=== PATIENT | female | born 1990 | race Caucasian/White ===

== ENCOUNTER → 2017-02-23 | Outpatient (CLI) | payer OTHER ==
[2017-02-23 08:42] LABS: Cholesterol 216 mg/dL (<200); HDL Cholesterol 56 mg/dL (40-60); Triglycerides 180 mg/dL (<150)
== END | disposition home or self-care (01) ==
LOC: LABWHC1 08:04
PROVIDERS: ATTEND Nurse Practitioner Women's Health
DX: R53.83 Other fatigue (principal)
CPT/HCPCS: 36415; 80061

== ENCOUNTER → 2018-09-08 | Outpatient (CLI) | payer OTHER ==
--- NOTE | 2018-09-08 10:35 | XR ---
EXAMINATION TYPE: XR chest 2V DATE OF EXAM: 09/08/2018 COMPARISON: 04/27/2010 INDICATION: Cough, short of breath TECHNIQUE: Frontal and lateral views of the chest are obtained. FINDINGS: The heart size is normal. The pulmonary vasculature is normal. The lungs are clear. IMPRESSION: 1. No acute pulmonary process.
== END | disposition home or self-care (01) ==
LOC: RADXRMAIN 10:08
PROVIDERS: ATTEND Family Medicine
DX: R05 Cough (principal)
CPT/HCPCS: 71046

== ENCOUNTER → 2018-11-09 | Outpatient (CLI) | payer OTHER ==
[2018-11-09 17:51] LABS: Basophils % (A) 0 %; Eosinophils # (A) 0.1 k/uL (0-0.7); Eosinophils % (A) 2 %; HCT 40.7 % (34.0-46.0); HGB 13.3 gm/dL (11.4-16.0); Lymphocytes # (A) 3.3 k/uL (1.0-4.8); Lymphocytes % (A) 45 %; MCH 31.1 pg (25.0-35.0); MCHC 32.6 g/dL (31.0-37.0); MCV 95.4 fL (80.0-100.0); Mean Platelet Volume 6.2; Monocytes # (A) 0.3 k/uL (0-1.0); Monocytes % (A) 4 %; Neutrophils # (A) 3.4 k/uL (1.3-7.7); Neutrophils % (A) 46 %; Platelet Count 327 k/uL (150-450); RBC 4.27 m/uL (3.80-5.40); RDW 12.8 % (11.5-15.5); WBC 7.4 k/uL (3.8-10.6)
[2018-11-10 05:28] LABS: EBV-VCA (IgG) >8.0 AI
[2018-11-10 06:00] LABS: Albumin 5.1 g/dL (3.80-4.90); Albumin/Globulin Ratio 2.22 (1.20-2.10); Anion Gap 7.3 mmol/L (4.00-12.00); Carbon Dioxide 27.7 mmol/L (21.6-31.8); Globulin 2.3 g/dL (1.6-3.3); Potassium 3.9 mmol/L (3.5-5.5); Total Bilirubin 1.1 mg/dL (0.2-1.2); Total Protein 7.4 g/dL (6.2-8.2)
[2018-11-10 06:01] LABS: T4, Free (Free Thyroxine) 1.2 ng/dL (0.80-1.80)
== END ==
LOC: LABWHC1 17:22
DX: R07.89 Other chest pain (principal); R53.83 Other fatigue
CPT/HCPCS: 36415; 80053; 82784; 84439; 84443; 85025; 86644; 86663; 86664; 86665

== ENCOUNTER → 2019-01-03 | Outpatient (CLI) | payer OTHER ==
[2019-01-03 12:22] LABS: Albumin 4.9 g/dL (3.80-4.90); Albumin/Globulin Ratio 1.96 (1.60-3.17); Bilirubin, Conjugated 0.3 mg/dL (0.20-0.40); Bilirubin,Unconjugated 1.2 mg/dL; Globulin 2.5 g/dL (1.6-3.3); LDL Cholesterol,Calculated 119.4 mg/dL (0.0-131.0); Total Bilirubin 1.5 mg/dL (0.3-1.2); Total Protein 7.4 g/dL (6.2-8.2); VLDL Calculation 32.6 mg/dL (5.00-40.00)
== END | disposition home or self-care (01) ==
LOC: LABWHC1 06:53
PROVIDERS: ATTEND Family Medicine
DX: Z00.00 Encounter for general adult medical examination without abnormal findings (principal)
CPT/HCPCS: 36415; 80061; 80076

== ENCOUNTER → 2019-11-17 | Outpatient (CLI) | payer BC, OTHER ==
[2019-11-17 07:36] LABS: HGB 12.6 gm/dL (11.4-16.0); MCH 31.8 pg (25.0-35.0); MCHC 33.2 g/dL (31.0-37.0); MCV 95.8 fL (80.0-100.0); Mean Platelet Volume 7.3; Platelet Count 260 k/uL (150-450); RBC 3.97 m/uL (3.80-5.40); RDW 12.5 % (11.5-15.5); WBC 6.8 k/uL (3.8-10.6)
[2019-11-17 13:08] LABS: African American GFR (CKD) 152.7 (60.0-200.0); Non-African American GFR(CKD) 131.7 (60.0-200.0)
[2019-11-17 13:49] LABS: Hepatitis B Surface Antigen Non-Reactive (Non-Reactive)
[2019-11-19 14:59] LABS: C. trachomatis,PCR Negative (Neg,Equiv); Chlamydia trachomatis Source Urine; N. gonorrhoeae,PCR Negative (Neg,Equiv); Neisseria Source Urine
== END | disposition home or self-care (01) ==
LOC: LABWHC1 06:38
PROVIDERS: ATTEND Obstetrics & Gynecology
DX: Z34.81 Encounter for supervision of other normal pregnancy, first trimester (principal); Z3A.00 Weeks of gestation of pregnancy not specified
CPT/HCPCS: 36415; 82565; 82947; 85027; 86762; 86780; 86900; 86901; 87340; 87491; 87591

== ENCOUNTER → 2020-01-12 | Outpatient (CLI) | payer BC, OTHER ==
--- NOTE | 2020-01-12 14:40 | US ---
EXAMINATION TYPE: US venous doppler duplex LE RT DATE OF EXAM: 01/12/2020 2:28 PM COMPARISON: NONE CLINICAL HISTORY: lower leg pain I87.2. right lower leg pain. Patient in . SIDE PERFORMED: Right TECHNIQUE: The lower extremity deep venous system is examined utilizing real time linear array sonog guillermina with graded compression, doppler sonography and color-flow sonography. VESSELS IMAGED: External Iliac Vein (EIV) Common Femoral Vein Deep Femoral Vein Greater Saphenous Vein * Femoral Vein Popliteal Vein Small Saphenous Vein * Proximal Calf Veins (* superficial vessels) Grayscale, color doppler, spectral doppler imaging performed of the deep veins of the right lower ext remity. There is normal flow, compressibility, vascular waveforms. Right Leg: Negative for DVT IMPRESSION: No sonographic evidence of deep venous thrombosis within the right lower extremity.
== END | disposition home or self-care (01) ==
LOC: RADUSWWP 13:58
PROVIDERS: ATTEND Family Medicine
DX: I87.2 Venous insufficiency (chronic) (peripheral) (principal); M79.661 Pain in right lower leg

== ENCOUNTER → 2020-01-12 | Outpatient (CLI) | payer BC, OTHER | END | disposition home or self-care (01) | LOC: LABWHC1 10:43 | PROVIDERS: ATTEND Family Medicine | DX: R05 Cough (principal); R53.83 Other fatigue; Z32.01 Encounter for pregnancy test, result positive | CPT/HCPCS: 87502 ==

== ENCOUNTER 2020-03-05 02:41 | Emergency (ER) | payer BC, OTHER ==
[2020-03-05 02:52] VITALS: TEMP 98.5
--- NOTE | 2020-03-05 03:22 | ED ---
Extremity Problem HPI - General Chief complaint: Neuro Symptoms/Deficit Stated complaint: R arm pain Time Seen by Provider: 03/05/20 03:15 Source: patient, RN notes reviewed, old records reviewed Mode of arrival: ambulatory Limitations: no limitations - History of Present Illness Initial comments: This is a 21-year-old female DF positive third trimester coming in for right hand pain significant right hand pain as well as been progressively w orsening she has to a job working at a computer and often. Pain is located mostly in the thumb that shoots up her arm. No trauma noted by the patient. No shortness of breath cough or congestion. No fevers. No headaches. MD Complaint: extremity pain (Right hand), joint pain (Right thumb) -: days(s) Location: right History of Same: No -: Yes arthralgia Radiation: proximal Severity scale (1-10): 8 Quality: aching Consistency: constant Improves with: immobilization Worsens with: exertion, palpation Associated Symptoms: denies other symptoms - Related Data Previous Rx's Medication Instructions Recorded Bisacodyl [Dulcolax] 5 mg PO DAILY #20 tablet. 01/24/19 Phenyleph/Pramoxin/Glycr/W.pet 1 applic RECTAL TID #51 gm 01/24/19 [Preparation H Cream] Allergies Allergy/AdvReac Type Severity Reaction Status Date / Time chocolate flavor Allergy Intermediate Rash/Hives Verified 01/24/19 17:26 Review of Systems ROS Statement: Those systems with pertinent positive or pertinent negative responses have been documented in the HPI. ROS Other: All systems not noted in ROS Statement are negative. Past Medical History Past Medical History: No Reported History History of Any Multi-Drug Resistant Organisms: None Reported Past Surgical History: No Surgical Hx Reported Past Anesthesia/Blood Transfusion Reactions: No Reported Reaction Past Psychological History: No Psychological Hx Reported Smoking Status: Never smoker Past Alcohol Use History: None Reported Past Drug Use History: None Reported - Past Family History Mother Family Medical History: Thyroid Disorder Additional Family Medical History / Comment(s): ovarian cancer General Exam - General Exam Comments Initial Comments: positive Colten test right hand Limitations: no limitations General appearance: alert, in no apparent distress Head exam: Present: atraumatic, normocephalic, normal inspection Eye exam: Present: normal appearance, PERRL, EOMI. Absent: scleral icterus, conjunctival injection, periorbital swelling ENT exam: Present: normal exam, mucous membranes moist Neck exam: Present: normal inspection. Absent: tenderness, meningismus, lymphadenopathy Respiratory exam: Present: normal lung sounds bilaterally. Absent: respiratory distress, wheezes, rales, rhonchi, stridor Cardiovascular Exam: Present: regular rate, normal rhythm, normal heart sounds. Absent: systolic murmur, diastolic murmur, rubs, gallop, clicks GI/Abdominal exam: Present: soft, normal bowel sounds. Absent: distended, tenderness, guarding, rebound, rigid Extremities exam: Present: normal inspection, full ROM, normal capillary refill. Absent: tenderness, pedal edema, joint swelling, calf tenderness Back exam: Present: normal inspection Neurological exam: Present: alert, oriented X3, CN II-XII intact Psychiatric exam: Present: normal affect, normal mood Skin exam: Present: warm, dry, intact, normal color. Absent: rash Course Vital Signs 03/05/20 02:48 Temperature 98.5 F Pulse Rate 116 H Respiratory 18 Rate Blood Pressure 135/81 O2 Sat by Pulse 97 Oximetry - Reevaluation(s) Reevaluation #1: 03/05/20 05:31 Medical records reviewed Reevaluation #2: 03/05/20 05:31 Patient informed of results need for splint at night if pain persists, Tylenol as instructed now with icing and elevation Medical Decision Making - Medical Decision Making 21 female DEL with likely de Quervain's tenosynovitis versus other cellulitis and swelling of upper extremity. Patient has normal lab values here in the ER and can be discharged home - Lab Data Result diagrams: 03/05/20 03:09 03/05/20 03:09 Lab Results 03/05/20 03/05/20 03/05/20 Range/Units 03:09 03:09 03:11 WBC 8.9 (3.8-10.6) k/uL RBC 3.71 L (3.80-5.40) m/uL Hgb 11.9 (11.4-16.0) gm/dL Hct 35.4 (34.0-46.0) % MCV 95.2 (80.0-100.0) fL MCH 31.9 (25.0-35.0) pg MCHC 33.5 (31.0-37.0) g/dL RDW 13.4 (11.5-15.5) % Plt Count 235 (150-450) k/uL Neutrophils % 69 % Lymphocytes % 23 % Monocytes % 5 % Eosinophils % 2 % Basophils % 0 % Neutrophils # 6.1 (1.3-7.7) k/uL Lymphocytes # 2.0 (1.0-4.8) k/uL Monocytes # 0.4 (0-1.0) k/uL Eosinophils # 0.1 (0-0.7) k/uL Basophils # 0.0 (0-0.2) k/uL Sodium 134 L (137-145) mmol/L Potassium 4.2 (3.5-5.1) mmol/L Chloride 105 (98-107) mmol/L Carbon Dioxide 20 L (22-30) mmol/L Anion Gap 9 mmol/L BUN 5 L (7-17) mg/dL Creatinine 0.34 L (0.52-1.04) mg/dL Est GFR (CKD-EPI)AfAm >90 (>60 ml/min/1.73 sqM) Est GFR (CKD-EPI)NonAf >90 (>60 ml/min/1.73 sqM) Glucose 91 (74-99) mg/dL Calcium 9.8 (8.4-10.2) mg/dL Phosphorus 4.6 H (2.5-4.5) mg/dL Magnesium 1.7 (1.6-2.3) mg/dL Total Bilirubin 0.5 (0.2-1.3) mg/dL AST 21 (14-36) U/L ALT 11 (4-34) U/L Alkaline Phosphatase 74 (38-126) U/L Total Protein 7.1 (6.3-8.2) g/dL Albumin 4.0 (3.5-5.0) g/dL Urine Color Light Yellow Urine Appearance Clear (Clear) Urine pH 6.5 (5.0-8.0) Ur Specific [place] 1.009 (1.001-1.035) Urine Protein Negative (Negative) Urine Glucose (UA) Negative (Negative) Urine Ketones Negative (Negative) Urine Blood Negative (Negative) Urine Nitrite Negative (Negative) Urine Bilirubin Negative (Negative) Urine Urobilinogen <2.0 (<2.0) mg/dL Ur Leukocyte Esterase Negative (Negative) Disposition Clinical Impression: Hand edema, Third trimester , De Quervain's tenosynovitis Disposition: HOME SELF-CARE Condition: Good Instructions (If sedation given, give patient instructions): De Quervain Disease (ED) Is patient prescribed a controlled substance at d/c from ED?: No Referrals: Girish Roman Jr, DO [Primary Care Provider] - 1-2 days
[2020-03-05 03:25] LABS: Appearance,Urine Clear (Clear); Bilirubin,Urine Negative (Negative); Blood,Urine Negative (Negative); Color,Urine Light Yellow; Glucose,Urine (UA) Negative (Negative); Ketones,Urine Negative (Negative); Leukocyte Esterase,Urine Negative (Negative); Nitrite,Urine Negative (Negative); PH, Urine 6.5 (5.0-8.0); Protein,Urine Negative (Negative); Specific Gravity,Urine 1.009 (1.001-1.035); Urobilinogen,Urine <2.0 mg/dL (<2.0)
[2020-03-05 03:33] LABS: Basophils % (A) 0 %; Eosinophils # (A) 0.1 k/uL (0-0.7); Eosinophils % (A) 2 %; HCT 35.4 % (34.0-46.0); HGB 11.9 gm/dL (11.4-16.0); Lymphocytes % (A) 23 %; MCH 31.9 pg (25.0-35.0); MCHC 33.5 g/dL (31.0-37.0); MCV 95.2 fL (80.0-100.0); Mean Platelet Volume 7.1; Monocytes # (A) 0.4 k/uL (0-1.0); Monocytes % (A) 5 %; Neutrophils # (A) 6.1 k/uL (1.3-7.7); Neutrophils % (A) 69 %; Platelet Count 235 k/uL (150-450); RBC 3.71 m/uL (3.80-5.40); RDW 13.4 % (11.5-15.5); WBC 8.9 k/uL (3.8-10.6)
[2020-03-05 03:43] LABS: ALT 11 U/L (4-34); AST 21 U/L (14-36); African American GFR (CKD) >90 (>60 ml/min/1.73 sqM); Alkaline Phosphatase 74 U/L (38-126); Anion Gap 9 mmol/L; Blood Urea Nitrogen 5 mg/dL (7-17); Calcium 9.8 mg/dL (8.4-10.2); Carbon Dioxide 20 mmol/L (22-30); Chloride 105 mmol/L (98-107); Glucose 91 mg/dL (74-99); Magnesium 1.7 mg/dL (1.6-2.3); Non-African American GFR(CKD) >90 (>60 ml/min/1.73 sqM); Phosphorus 4.6 mg/dL (2.5-4.5); Potassium 4.2 mmol/L (3.5-5.1); Sodium 134 mmol/L (137-145); Total Bilirubin 0.5 mg/dL (0.2-1.3); Total Protein 7.1 g/dL (6.3-8.2)
[2020-03-05 05:38] VITALS: BP 125/76; PULSE 94; RESP 16
== END 2020-03-05 05:38 | disposition home or self-care (01) ==
LOC: EC 02:41
DX: O99.89 Other specified diseases and conditions complicating pregnancy, childbirth and the puerperium (principal); M65.4 Radial styloid tenosynovitis [de Quervain]; R60.0 Localized edema; Z3A.00 Weeks of gestation of pregnancy not specified; Z91.018 Allergy to other foods
CPT/HCPCS: 36415; 80053; 81003; 83735; 84100; 85025; 99284

== ENCOUNTER 2020-05-09 13:16 | Outpatient (CLI) | payer BC, OTHER ==
[2020-05-10 10:22] VITALS: BP 116/72; PULSE 96; RESP 16; TEMP 98.4
--- NOTE | 2020-05-11 09:30 | P.MSEPDOC ---
Presenting Problems - Arrival Data Date of Arrival on Unit: 05/09/20 Time of Arrival on Unit: 13:16 Mode of Transport: Ambulatory - Complaint OB-Reason for Admission/Chief Complaint: Possible Onset of Labor Comment: contractions 5 min apart since 0600 Medical History - Information : 2 Para: 1 Term: 1 : 0 Abortions: Spontaneous or Elective: 0 Number of Living Children: 1 - Gestational Age Gestational Age by BETTINA (wks/days): 38 Weeks and 2 Days Review of Systems - Review of Systems Constitutional: No problems Breast: No problems ENT: No problems Cardiovascular: No problems Respiratory: No problems Gastrointestinal: No problems Genitourinary: No problems Musculoskeletal: No problems Neurological: No problems Skin: No problems Vital Signs - Temperature Temperature: 98.4 F Temperature Source: Oral - Pulse Right Brachial Pulse Rate: 96 Pulse Assessment Method: Automatic Cuff - Respirations Respiratory Rate: 16 Oxygen Delivery Method: Room Air O2 Sat by Pulse Oximetry: 98 - Blood Pressure Right Arm Sitting Blood Pressure: 116/72 Blood Pressure Mean: 86 Blood Pressure Source: Automatic Cuff Medical Screen Scoring (Pre) - Cervical Exam Dilation: 1-3 cm = 1 Membranes: Intact - Uterine Contractions Frequency: > 5 minutes apart = 1 Duration: > 40 seconds = 2 Intensity: N/A - Maternal Vital Signs Maternal Temperature: N/A Maternal Blood Pressure: N/A Signs of Preeclampsia: N/A Maternal Respirations: N/A - Maternal Trauma Maternal Trauma: N/A - Assessment - Baby A Baseline FHR: 130 Heart Rate - NICHD Category: Category I (Normal) = 0 NST: Reactive Position: N/A Station: N/A - Total Score - Baby A Total Score - Baby A: 4 - Total Score - Baby B Total Score - Baby B: 4 - Total Score - Baby C Total Score - Baby C: 4 - Level of Risk - Baby A Level of Risk - Baby A: Low (0-5) - Level of Risk - Baby B Level of Risk - Baby B: Low (0-5) - Level of Risk - Baby C Level of Risk - Baby C: Low (0-5) Physician Notification (Pre) - Physician Notified Physician Notified Date: 05/09/20 Physician Notified Time: 14:33 New Order Received: Yes (Discharge with instruction) - Notification Comment Comment: pt instructed to hydrate more than 8 glasses water per day, rest on left or right side, return if contrations stronger and closer together, if water breaks or large bright red bleeding Disposition - Disposition OB Disposition: Triage, Discharge to home, Written follow up instructions reviewed Discharge Date: 05/09/20 Discharge Time: 14:36 I agree with the RN Medical Screening Exam: Yes Risk & Benefit of care provided described in d/c instruction: Yes Diagnosis: FALSE LABOR AT OR AFTER 37 COMPLETED WEEKS OF GESTATION
== END 2020-05-09 14:36 | disposition home or self-care (01) ==
LOC: FBPOP 13:16
PROVIDERS: ATTEND Obstetrics & Gynecology
DX: O47.1 False labor at or after 37 completed weeks of gestation (principal); Z3A.38 38 weeks gestation of pregnancy
CPT/HCPCS: 59025; 99213

== ENCOUNTER 2020-05-11 01:29 | Inpatient (IN) | payer BC, OTHER ==
[2020-05-11] MEDS ORDERED: OXYTOCIN 10 UNIT/ML 1 ML VIAL IM PRN (02:02)
[2020-05-11] MEDS ORDERED: LIDOCAINE 0.5% (PF) 5 MG/ML (50 ML SDV) SQ PRN (02:02)
[2020-05-11] MEDS ORDERED: METHYLERGONOVINE 0.2 MG/ML 1 ML AMP IM PRN (02:02)
[2020-05-11] MEDS ORDERED: TERBUTALINE 1 MG/ML VIAL SQ PRN (02:02)
[2020-05-11] MEDS ORDERED: CARBOPROST TROMETHAMINE 250 MCG/ML 1 ML AMP IM PRN (02:02)
[2020-05-11] MEDS ORDERED: LACTATED RINGERS 1,000 ML IV SCH (02:15)
[2020-05-11] MEDS ORDERED: SODIUM CHLORIDE 0.9% 100 ML BAG ONE (02:40)
[2020-05-11] MEDS ORDERED: ROPIVACAINE 5MG/ML 20ML VIAL ONE (02:40)
[2020-05-11] MEDS ORDERED: fentaNYL (PF) 50 MCG/ML 5 ML AMP ONE (02:40)
[2020-05-11 02:51] LABS: Basophils % (A) 0 %; Eosinophils # (A) 0.1 k/uL (0-0.7); Eosinophils % (A) 1 %; HGB 12.2 gm/dL (11.4-16.0); Lymphocytes % (A) 21 %; MCH 31.2 pg (25.0-35.0); MCHC 32.9 g/dL (31.0-37.0); MCV 94.8 fL (80.0-100.0); Mean Platelet Volume 7.2; Monocytes # (A) 0.6 k/uL (0-1.0); Monocytes % (A) 6 %; Neutrophils # (A) 6.7 k/uL (1.3-7.7); Neutrophils % (A) 70 %; Platelet Count 209 k/uL (150-450); RDW 15.3 % (11.5-15.5); WBC 9.6 k/uL (3.8-10.6)
[2020-05-11] MEDS: LACTATED RINGERS 1,000 ML IV SCH (02:55)
[2020-05-11] MEDS: OXYTOCIN 30 UNITS/500 ML NS 30 UNIT in SALINE 1 500ML.BAG IV SCH (03:43)
--- NOTE | 2020-05-11 08:36 | P.HPOB ---
History of Present Illness H&P Date: 05/11/20 Chief Complaint: Intrauterine at term: Spontaneous rupture membranes Patient is a 29-year-old at 38 weeks gestation who ryes in early labor following spontaneous rupture membranes. Fluid is clear and category 1 tracing is noted. She was dilated 2 cm. Her course was, complicated by an episode of numbness and tingling in her arm and wrist in legs at 29 weeks but this spontaneous resolved and she is had no other symptoms or problems since that time. She did pass her 3 hour Glucola screen after failing the 1 hour Glucola screen Pitocin augmentation of labor as planned and she is not certain as to whether not she will use any anesthesia. Pertinent labs include A+ blood type Rh sounded was negative, rubella immune, hepatitis B surface antigen RPR and GBS were all negative. Past Medical History Past Medical History: No Reported History History of Any Multi-Drug Resistant Organisms: None Reported Past Surgical History: No Surgical Hx Reported Past Anesthesia/Blood Transfusion Reactions: No Reported Reaction Past Psychological History: No Psychological Hx Reported Smoking Status: Never smoker Past Alcohol Use History: None Reported Past Drug Use History: None Reported - Past Family History Mother Family Medical History: Thyroid Disorder Additional Family Medical History / Comment(s): ovarian cancer Medications and Allergies Home Medications Medication Instructions Recorded Confirmed Type Pnv,Calcium 72/Iron/Folic Acid 1 each PO DAILY 05/09/20 05/11/20 History [ Plus Tablet] Allergies Allergy/AdvReac Type Severity Reaction Status Date / Time chocolate flavor Allergy Intermediate Rash/Hives Verified 05/11/20 01:40 Exam Osteopathic Statement: *. No significant issues noted on an osteopathic structural exam other than those noted in the History and Physical/Consult. Vital Signs Temp Pulse Resp BP Pulse Ox 05/11/20 02:23 98.2 F 93 16 133/78 96 05/11/20 01:41 98.2 F 93 16 133/78 96 Intake and Output 05/10/20 05/11/20 05/11/20 22:59 06:59 14:59 Other: Weight 85.729 kg - OBG Physical Exam Breast: both: normal (no masses) Abdomen: bowel sounds normal, no diffuse tenderness, no bruit present, no guarding noted, no hepatomegaly, no splenomegaly, no mass Vulva: both: normal Vagina: normal moisture, no discharge Cervix: no lesion, no discharge Uterus: normal size, normal contour Adnexa: both: normal Anus/Rectum: normal perianal skin, no rectal mass, no hemorrhoids, heme negative Results Result Diagrams: 05/11/20 02:15
--- NOTE | 2020-05-11 08:37 | P.PROBDLV ---
Vaginal Delivery Note - . Vaginal Delivery Note: Katelyn progressed complete and pushing with spontaneous vaginal delivery of a viable male over intact perineum. Following delivery of the head anterior shoulder was delivered gentle downward traction from left occiput anterior position. Once anterior shoulder was delivered gentle upper traction was done to deliver the posterior shoulder and the remainder of the baby. Mouth nares were then bulb suctioned baby was placed on mother's abdomen where the umbilical cord was clamped and cut in usual fashion following 30 seconds of pulsation. Nursery personnel was present and assumed care. Placenta was then delivered intact and Pitocin was added to the IV. It is noted that there is a succenturiate lobe on the placenta and it will be sent to pathology for evaluation. scores were 8 and 9 at one and 5 minutes respectively and the weight was 8 lbs. 9 oz. Both mother and baby are stable following delivery.
[2020-05-11] MEDS ORDERED: LANOLIN CREAM 5 GM TUBE TOPICAL PRN (11:14)
[2020-05-11] MEDS ORDERED: SIMETHICONE 80 MG CHEWABLE PO PRN (11:14)
[2020-05-11] MEDS ORDERED: ZOLPIDEM 5 MG TAB PO PRN (11:14)
[2020-05-11] MEDS ORDERED: ACETAMINOPHEN TAB 325 MG TAB PO PRN (11:14)
[2020-05-11] MEDS ORDERED: diphenhydrAMINE 50 MG CAP PO PRN (11:14)
[2020-05-11] MEDS ORDERED: HYDROCORTISONE 2.5% RECTAL CREAM 30 GM TUBE RECTAL PRN (11:14)
[2020-05-11] MEDS ORDERED: diphenhydrAMINE 50 MG/ML 1 ML VIAL IVP PRN ×2 (11:14)
[2020-05-11] MEDS ORDERED: diphenhydrAMINE 25 MG CAP PO PRN (11:14)
[2020-05-11] MEDS ORDERED: BENZOCAINE/MENTHOL SPRAY 1 GM/SPRAY AEROSOL TOPICAL PRN (11:14)
[2020-05-11] MEDS ORDERED: OXYTOCIN 20 UNITS/1000 ML NS 1,000 ML IV SCH (11:15)
[2020-05-11] MEDS: PRENATAL VIT-IRON-FOLIC ACID 1 EACH CAP PO SCH (11:23)
[2020-05-11] MEDS: IBUPROFEN 600 MG TAB PO PRN ×2 (11:23→17:19)
[2020-05-11 19:51] VITALS: RESP 16
[2020-05-11] MEDS: SENNOSIDES-DOCUSATE SODIUM 1 EACH TAB PO SCH (21:56)
[2020-05-12] MEDS: IBUPROFEN 600 MG TAB PO PRN ×2 (02:03→08:03)
[2020-05-12 06:07] LABS: Basophils % (A) 0 %; Eosinophils # (A) 0.1 k/uL (0-0.7); Eosinophils % (A) 1 %; HCT 36.1 % (34.0-46.0); HGB 12.4 gm/dL (11.4-16.0); Lymphocytes # (A) 2.4 k/uL (1.0-4.8); Lymphocytes % (A) 20 %; MCH 32.7 pg (25.0-35.0); MCHC 34.4 g/dL (31.0-37.0); MCV 95.1 fL (80.0-100.0); Mean Platelet Volume 7.9; Monocytes # (A) 0.6 k/uL (0-1.0); Monocytes % (A) 5 %; Neutrophils # (A) 8.7 k/uL (1.3-7.7); Neutrophils % (A) 73 %; Platelet Count 192 k/uL (150-450); RBC 3.79 m/uL (3.80-5.40); RDW 15.3 % (11.5-15.5); WBC 11.9 k/uL (3.8-10.6)
--- NOTE | 2020-05-12 06:18 | P.DS ---
Providers Date of admission: 05/11/20 01:55 Expected date of discharge: 05/12/20 Attending physician: Burak Arambula Primary care physician: Stated None Hospital Course: Katelyn is doing very well day 1. She is involuting, voiding and tolerating her diet. She voices no complaints. Vital signs are stable and afebrile. Heart regular, lungs clear, extremities without pain. Prescription for Motrin was forwarded to the pharmacy. Discharge instructions were thoroughly reviewed and all questions were answered for her prior to discharge. She is stable for discharge this time. She will follow up with me in Patient Condition at Discharge: Good Plan - Discharge Summary New Discharge Prescriptions: New Ibuprofen [Motrin] 600 mg PO Q6HR PRN #30 tab PRN Reason: Pain No Action Pnv,Calcium 72/Iron/Folic Acid [ Plus Tablet] 1 each PO DAILY Discharge Medication List Pnv,Calcium 72/Iron/Folic Acid [ Plus Tablet] 1 each PO DAILY 05/09/20 [History] Ibuprofen [Motrin] 600 mg PO Q6HR PRN #30 tab 05/12/20 [Rx] Follow up Appointment(s)/Referral(s): Burak Arambula DO [Doctor of Osteopathic Medicine] - 6 Weeks Activity/Diet/Wound Care/Special Instructions: No heavy lifting, limit stairs and driving, and pelvic rest. If any high tem peratures, heavy bleeding, or severe pain call my office Discharge Disposition: HOME SELF-CARE
[2020-05-12] MEDS: SENNOSIDES-DOCUSATE SODIUM 1 EACH TAB PO SCH (08:03)
[2020-05-12 08:12] VITALS: BP 115/72; PULSE 105; TEMP 98.1
[2020-05-12] MEDS: LACTATED RINGERS 1,000 ML IV SCH ×2 (08:12→08:13)
[2020-05-12] MEDS: OXYTOCIN 30 UNITS/500 ML NS 30 UNIT in SALINE 1 500ML.BAG IV SCH (08:13)
[2020-05-12] MEDS: PRENATAL VIT-IRON-FOLIC ACID 1 EACH CAP PO SCH (09:10)
== END 2020-05-12 09:10 | disposition home or self-care (01) | DRG 807 ==
LOC: FBPOP 01:29 → 4FBP 01:55
PROVIDERS: ADMIT Obstetrics & Gynecology; ATTEND Obstetrics & Gynecology
PROC: 10E0XZZ Delivery of Products of Conception, External Approach (ICD-10-PCS; principal; 2020-05-11)
DX: O80 Encounter for full-term uncomplicated delivery (principal); Z37.0 Single live birth; Z3A.38 38 weeks gestation of pregnancy; Z80.41 Family history of malignant neoplasm of ovary
CPT/HCPCS: 59025; 84112; 85025; 86850; 86900; 86901; 88307; 99213

== ENCOUNTER → 2020-07-23 | Outpatient (CLI) | payer BC, OTHER | END | disposition home or self-care (01) | LOC: LABWHC1 08:29 | PROVIDERS: ATTEND Obstetrics & Gynecology | DX: N92.6 Irregular menstruation, unspecified (principal) | CPT/HCPCS: 36415; 84702 ==

== ENCOUNTER → 2021-05-08 | Outpatient (CLI) | payer OTHER ==
--- NOTE | 2021-05-08 17:14 | US ---
EXAMINATION TYPE: US pelvic complete DATE OF EXAM: 05/08/2021 COMPARISON: NONE CLINICAL HISTORY: N92.1 iud placement. Patient's IUD string got pulled, having break through bleeding , IUD placed 1 year ago, TECHNIQUE: TA. Transabdominal sonographic images of the pelvis were acquired. Date of LMP: 04/06/2021 EXAM MEASUREMENTS: Uterus: 8.5 x 4.2 x 3.8 cm Endometrial Stripe: 0.7 cm Right Ovary: 3.8 x 2.4 x 2.1 cm Left Ovary: 3.0 x 2.2 x 2.2 cm 1. Uterus: Anteverted wnl 2. Endometrium: IUD seen, wnl 3. Right Ovary: 1.9cm dominate follicle seen, wnl 4. Left Ovary: wnl 5. Bilateral Adnexa: wnl 6. Posterior cul-de-sac: wnl IMPRESSION: 1. There is an IUD within the uterus. Endometrial stripe measures 7 mm, within normal limits for mens truating female. 2. 1.9 cm dominant follicle within the right ovary. 3. No free fluid.
== END | disposition home or self-care (01) ==
LOC: RADUSWWP 10:58
PROVIDERS: ATTEND Obstetrics & Gynecology
DX: N92.1 Excessive and frequent menstruation with irregular cycle (principal); Z97.5 Presence of (intrauterine) contraceptive device
CPT/HCPCS: 76856

== ENCOUNTER 2021-10-05 02:04 | Emergency (ER) | payer OTHER ==
[2021-10-05] MEDS ORDERED: KETOROLAC 30 MG/ML 1 ML VIAL IVP STA (02:20)
[2021-10-05] MEDS ORDERED: SODIUM CHLORIDE 0.9% 500 ML 500 ML IV STA (02:20)
[2021-10-05] MEDS ORDERED: MORPHINE SULFATE 4 MG/ML SYRINGE IV STA (02:20)
[2021-10-05] MEDS ORDERED: SODIUM CHLORIDE 0.9% 1,000 ML IV STA ×2 (02:20)
--- NOTE | 2021-10-05 02:26 | ED ---
Abdominal Pain HPI - General Chief Complaint: Abdominal Pain Stated Complaint: Abdominal Pain Time Seen by Provider: 10/05/21 02:20 Source: patient, family Mode of arrival: ambulatory Limitations: no limitations - Related Data Home Medications Medication Instructions Recorded Confirmed Pnv,Calcium 72/Iron/Folic Acid 1 each PO DAILY 05/09/20 05/11/20 [ Plus Tablet] Previous Rx's Medication Instructions Recorded Ibuprofen [Motrin] 600 mg PO Q6HR PRN #30 tab 05/12/20 Allergies Allergy/AdvReac Type Severity Reaction Status Date / Time chocolate flavor Allergy Intermediate Rash/Hives Verified 10/05/21 02:08 Review of Systems ROS Statement: Those systems with pertinent positive or pertinent negative responses have been documented in the HPI. ROS Other: All systems not noted in ROS Statement are negative. Past Medical History Past Medical History: No Reported History History of Any Multi-Drug Resistant Organisms: None Reported Past Surgical History: No Surgical Hx Reported Past Anesthesia/Blood Transfusion Reactions: No Reported Reaction Past Psychological History: Anxiety Smoking Status: Never smoker Past Alcohol Use History: None Reported Past Drug Use History: None Reported - Past Family History Mother Family Medical History: Thyroid Disorder Additional Family Medical History / Comment(s): ovarian cancer General Exam Limitations: no limitations Course Vital Signs 10/05/21 10/05/21 02:04 05:00 Temperature 98.4 F 98.0 F Pulse Rate 110 H 72 Respiratory 22 16 Rate Blood Pressure 127/80 108/78 O2 Sat by Pulse 98 99 Oximetry Medical Decision Making - Lab Data Result diagrams: 10/05/21 02:35 Lab Results 10/05/21 10/05/21 10/05/21 Range/Units 02:35 05:00 05:00 Sodium 138 (137-145) mmol/L Potassium 3.9 (3.5-5.1) mmol/L Chloride 103 (98-107) mmol/L Carbon Dioxide 22 (22-30) mmol/L Anion Gap 13 mmol/L BUN 11 (7-17) mg/dL Creatinine 0.76 (0.52-1.04) mg/dL Est GFR (CKD-EPI)AfAm >90 (>60 ml/min/1.73 sqM) Est GFR (CKD-EPI)NonAf >90 (>60 ml/min/1.73 sqM) Glucose 95 (74-99) mg/dL Calcium 9.9 (8.4-10.2) mg/dL Total Bilirubin 1.4 H (0.2-1.3) mg/dL AST 23 (14-36) U/L ALT 14 (4-34) U/L Alkaline Phosphatase 48 (38-126) U/L Total Protein 8.0 (6.3-8.2) g/dL Albumin 4.8 (3.5-5.0) g/dL Amylase 47 (30-110) U/L Lipase 48 (23-300) U/L Urine Color Yellow Urine Appearance Clear (Clear) Urine pH 8.0 (5.0-8.0) Ur Specific [place] >1.050 H (1.001-1.035) Urine Protein Trace H (Negative) Urine Glucose (UA) Negative (Negative) Urine Ketones 1+ H (Negative) Urine Blood Negative (Negative) Urine Nitrite Negative (Negative) Urine Bilirubin Negative (Negative) Urine Urobilinogen <2.0 (<2.0) mg/dL Ur Leukocyte Esterase Trace H (Negative) Urine WBC 1 (0-5) /hpf Ur Squamous Epith Cells 5 H (0-4) /hpf Urine HCG, Qual Not Detected (Not Detectd) Disposition Clinical Impression: Abdominal pain, Ovarian cyst Disposition: HOME SELF-CARE Condition: Good Instructions (If sedation given, give patient instructions): Ruptured Ovarian Cyst (ED) Is patient prescribed a controlled substance at d/c from ED?: No Referrals: Girish Roman Jr, [Primary Care Provider] - 1-2 days
--- NOTE | 2021-10-05 02:58 | CT ---
EXAMINATION TYPE: CT abdomen pelvis w con DATE OF EXAM: 10/05/2021 COMPARISON: 06/08/2014 HISTORY: RLQ pain CT DLP: 736 mGycm Automated exposure control for dose reduction was used. CONTRAST: Performed with IV Contrast, patient injected with 100 mL of Isovue 300. Images obtained from the diaphragm to the floor the pelvis with IV contrast. Lung bases are clear. There is no pleural effusion. Heart size is normal. There is no pericardial eff usion. Liver spleen stomach pancreas gallbladder appear intact. The bile ducts are nondilated. Liver is enla rged and measures 21 cm in length. There is no adrenal mass. Kidneys have normal size. There is no hydronephrosis. Ureters are not dilat ed. There is no retroperitoneal adenopathy. Delayed images show normal renal excretion. Bladder diste nds smoothly. There is no inguinal hernia. There is no free fluid in the pelvis. There is IUD in the uterine fundus. Uterus is anteverted. There is no evidence of a pelvic mass. Appendix is not seen. No sign of thickened appendix. There is no mesenteric edema. There is no ascite s or free air. There is no bowel obstruction. The lumbar vertebra have normal spacing and alignment. Posterior elements are intact. Bony pelvis is intact. The hip joints are intact. There is no hip dysplasia. IMPRESSION: Negative CT scan of the abdomen pelvis. Hepatomegaly. No adverse change compared to old exam.
[2021-10-05 03:04] LABS: ALT 14 U/L (4-34); AST 23 U/L (14-36); African American GFR (CKD) >90 (>60 ml/min/1.73 sqM); Albumin 4.8 g/dL (3.5-5.0); Alkaline Phosphatase 48 U/L (38-126); Amylase 47 U/L (30-110); Anion Gap 13 mmol/L; Blood Urea Nitrogen 11 mg/dL (7-17); Calcium 9.9 mg/dL (8.4-10.2); Carbon Dioxide 22 mmol/L (22-30); Chloride 103 mmol/L (98-107); Glucose 95 mg/dL (74-99); Lipase 48 U/L (23-300); Non-African American GFR(CKD) >90 (>60 ml/min/1.73 sqM); Potassium 3.9 mmol/L (3.5-5.1); Sodium 138 mmol/L (137-145); Total Bilirubin 1.4 mg/dL (0.2-1.3)
[2021-10-05 05:32] LABS: Appearance,Urine Clear (Clear); Bilirubin,Urine Negative (Negative); Blood,Urine Negative (Negative); Color,Urine Yellow; Glucose,Urine (UA) Negative (Negative); Ketones,Urine 1+ (Negative); Leukocyte Esterase,Urine Trace (Negative); Nitrite,Urine Negative (Negative); Protein,Urine Trace (Negative); Squamous Epithelial Cell,Urine 5 /hpf (0-4); Urobilinogen,Urine <2.0 mg/dL (<2.0); WBC,Urine 1 /hpf (0-5)
[2021-10-05 05:40] LABS: Specific Gravity,Urine >1.050 (1.001-1.035)
[2021-10-05] MEDS ORDERED: ACET/COD 300 MG/30 MG STARTER PACK 6 TAB BTL PO STA (05:48)
[2021-10-05] MEDS ORDERED: MORPHINE SULFATE 4 MG/ML SYRINGE IVP STA (05:48)
[2021-10-05 06:48] VITALS: BP 103/56; PULSE 91; RESP 20; TEMP 98.3
== END 2021-10-05 06:20 | disposition home or self-care (01) ==
LOC: EC 02:04
DX: N83.201 Unspecified ovarian cyst, right side (principal); F41.9 Anxiety disorder, unspecified
CPT/HCPCS: 99284; 96374; 96375; 96376; 96361; 36415; 80053; 82150; 83690; 81001; 81025; 74177; J2270; J1885; Q9967

== ENCOUNTER 2022-01-09 05:56 | Emergency (ER) | payer OTHER ==
--- NOTE | 2022-01-09 06:36 | ED ---
General Adult HPI - General Chief complaint: Abdominal Pain Stated complaint: Abdominal pain, 12wks preg Time Seen by Provider: 01/09/22 06:13 Source: patient, RN notes reviewed Mode of arrival: ambulatory Limitations: no limitations - History of Present Illness Initial comments: Patient's a 31-year-old female presented to the emergency room today with a chief complaint of pain in the right lower quadrant. She states it started around 2 AM. She states it's coming and going. Patient does admit that she's approximately 12 weeks . She does admit that she had JUST 2 DAYS AGO. DENIES ANY VAGINAL BLEEDING OR DISCHARGE. PATIENT STATES CURRENTLY PAIN-FREE AT THIS TIME. SHE STATES HER [facility] OFFICE WAS NOT OPEN SO SHE CAME HERE TO THE EMERGENCY ROOM. PATIENT DENIES ANY OTHER COMPLAINTS OR ANY OTHER SYMPTOMS CURRENTLY. Patient denies any recent fever, chills, shortness of breath, chest pain, back pain, nausea or vomiting, numbness or tingling, dysuria or hematuria, constipation or diarrhea, headaches or visual changes, or any other complaints. - Related Data Home Medications Medication Instructions Recorded Confirmed Pnv,Calcium 72/Iron/Folic Acid 1 each PO DAILY 05/09/20 05/11/20 [ Plus Tablet] Previous Rx's Medication Instructions Recorded Ibuprofen [Motrin] 600 mg PO Q6HR PRN #30 tab 05/12/20 Allergies Allergy/AdvReac Type Severity Reaction Status Date / Time chocolate flavor Allergy Intermediate Rash/Hives Verified 01/09/22 06:02 Review of Systems ROS Statement: Those systems with pertinent positive or pertinent negative responses have been documented in the HPI. ROS Other: All systems not noted in ROS Statement are negative. Past Medical History Past Medical History: No Reported History History of Any Multi-Drug Resistant Organisms: None Reported Past Surgical History: No Surgical Hx Reported Past Anesthesia/Blood Transfusion Reactions: No Reported Reaction Past Psychological History: Anxiety Smoking Status: Never smoker Past Alcohol Use History: None Reported Past Drug Use History: None Reported - Past Family History Mother Family Medical History: Thyroid Disorder Additional Family Medical History / Comment(s): ovarian cancer General Exam - General Exam Comments Initial Comments: General: The patient is awake and alert, in no distress, and does not appear acutely ill. Eye: extra-ocular movements are intact. There is normal conjunctiva bilaterally. No signs of icterus. Ears, nose, mouth and throat: There are moist mucous membranes and no oral lesions. Neck: The neck is supple. Respiratory: espirations are non-labored, breath sounds are equal. Gastrointestinal: Soft, non-distended, non-tender abdomen without masses or organomegaly noted. There is no rebound or guarding present. No CVA tenderness. Musculoskeletal: Normal ROM Neurological: A&O x 3. CN II-XII intact, There are no obvious motor or sensory deficits. Coordination appears grossly intact. Speech is normal. Skin: Skin is warm and dry and no rashes or lesions are noted. Psychiatric: Cooperative, appropriate mood & affect, normal judgment. Limitations: no limitations Course Vital Signs 01/09/22 05:57 Temperature 98 F Pulse Rate 92 Respiratory 22 Rate Blood Pressure 109/70 O2 Sat by Pulse 98 Oximetry Medical Decision Making - Medical Decision Making Patient's urinalysis was reviewed and was unremarkable. No sign of infection. Patient does admit that this pain is coming going. Started just a few hours ago which was at home. She been comfortable here in emergency room. She did request to have some Tylenol which was given. Patient has no bleeding or d ischarge. She states she did have an ultrasound just 2 days ago her PASTRY BAKER's office. The patient denies any other complaints or any other symptoms currently. Was discussed with patient about further evaluation blood work/ultrasound. At this times feels couple being discharged to follow with her PASTRY BAKER. She is advised close follow-up. Advised return here to emergency room if any symptoms increase or worsen. She states understanding and is in agreement. - Lab Data Lab Results 01/09/22 Range/Units 06:29 Urine Color Light Yellow Urine Appearance Clear (Clear) Urine pH 7.5 (5.0-8.0) Ur Specific [place] 1.007 (1.001-1.035) Urine Protein Negative (Negative) Urine Glucose (UA) Negative (Negative) Urine Ketones Negative (Negative) Urine Blood Negative (Negative) Urine Nitrite Negative (Negative) Urine Bilirubin Negative (Negative) Urine Urobilinogen <2.0 (<2.0) mg/dL Ur Leukocyte Esterase Negative (Negative) Disposition Clinical Impression: Abdominal pain in Disposition: HOME SELF-CARE Condition: Good Instructions (If sedation given, give patient instructions): Abdominal Pain (ED) Additional Instructions: Please use Tylenol for pain. Follow with your PASTRY BAKER later today as discussed. Return here to emergency room if any symptoms increase worsen or for any other concerns. Is patient prescribed a controlled substance at d/c from ED?: No If prescribed controlled substance>3 days was MAPS reviewed?: Prescribed <3 Days Referrals: Girish Roman Jr, DO [Primary Care Provider] - 1-2 days Delfina Garcia DO [Doctor of Osteopathic Medicine] - 1-2 days Time of Disposition: 07:01
[2022-01-09] MEDS ORDERED: ACETAMINOPHEN TAB 500 MG TAB PO STA (06:41)
[2022-01-09 06:47] LABS: Appearance,Urine Clear (Clear); Bilirubin,Urine Negative (Negative); Blood,Urine Negative (Negative); Color,Urine Light Yellow; Glucose,Urine (UA) Negative (Negative); Ketones,Urine Negative (Negative); Leukocyte Esterase,Urine Negative (Negative); Nitrite,Urine Negative (Negative); PH, Urine 7.5 (5.0-8.0); Protein,Urine Negative (Negative); Specific Gravity,Urine 1.007 (1.001-1.035); Urobilinogen,Urine <2.0 mg/dL (<2.0)
[2022-01-09 07:54] VITALS: BP 99/61; PULSE 83; RESP 17; TEMP 97.9
== END 2022-01-09 07:55 | disposition home or self-care (01) ==
LOC: EC 05:56
DX: O26.892 Other specified pregnancy related conditions, second trimester (principal); O99.342 Other mental disorders complicating pregnancy, second trimester; F41.9 Anxiety disorder, unspecified; Z3A.12 12 weeks gestation of pregnancy
CPT/HCPCS: 81003; 99284

== ENCOUNTER 2022-07-11 21:41 | Outpatient (CLI) | payer OTHER ==
[2022-07-11 23:31] VITALS: BP 132/66; PULSE 92; RESP 17; TEMP 97.2
--- NOTE | 2022-07-14 07:35 | P.MSEPDOC ---
Presenting Problems - Arrival Data Date of Arrival on Unit: 07/11/22 Time of Arrival on Unit: 21:41 Mode of Transport: Ambulatory - Complaint OB-Reason for Admission/Chief Complaint: Possible Onset of Labor, Rule Out SROM Comment: pt presents to triage for possible labor and SROM around 2109 tonight, Medical History - Information : 3 Para: 2 Term: 2 : 0 Abortions: Spontaneous or Elective: 0 Number of Living Children: 2 - Gestational Age Gestational Age by BETTINA (wks/days): 37 Weeks and 3 Days Review of Systems - Review of Systems Constitutional: No problems Breast: No problems ENT: No problems Cardiovascular: No problems Respiratory: No problems Gastrointestinal: No problems Genitourinary: No problems Musculoskeletal: No problems Neurological: No problems Skin: No problems Vital Signs - Temperature Temperature: 97.2 F Temperature Source: Temporal Artery Scan - Pulse Right Brachial Pulse Rate: 92 Pulse Assessment Method: Automatic Cuff - Respirations Respiratory Rate: 17 Oxygen Delivery Method: Room Air - Blood Pressure Right Arm Blood Pressure: 132/66 Blood Pressure Mean: 88 Blood Pressure Source: Automatic Cuff Medical Screen Scoring - Cervical Exam Dilation (cm): 3 Effacement (%): 60 Station: -2 Membranes: Intact - Uterine Contractions Frequency From (mins): 6 Frequency To (mins): 10 Duration From (seconds): 60 Duration To (seconds): 80 Intensity: Mild Resting: Soft to palpation - Assessment - Baby A Baseline FHR: 125 Heart Rate - NICHD Category: Category I (Normal) NST: Reactive Physician Notification - Physician Notified Physician Notified Date: 07/11/22 Physician Notified Time: 22:59 Physician: Delfina Garcia New Order Received: Yes - Notification Comment Comment: no cervical change booth attendant an hour, category 1 fht's, pt discharged home with labor instructions and to follow up on as scheduled appt Maternal Triage Index - Maternal Triage Index Presenting for scheduled procedure w/no complaint: No - Stat/Priority 1 Stat Priority 1: No - Urgent/Priority 2 Urgent Priority 2: No - Prompt/Priority 3 Prompt Priority 3: Yes Criteria Met for Priority 3: pt presents to triage for possible labor and SROM around 2109 tonight, GA 37 3/7 - Non-Urgent/Priority 4 Non-Urgent Priority 4: No - Scheduled/Requesting Priority 5 Scheduled/Requesting Priority 5: No Disposition - Disposition OB Disposition: Triage, Discharge to home, Written follow up instructions reviewed Discharge Date: 07/11/22 Discharge Time: 23:05 I agree with the RN Medical Screening Exam: Yes Case reviewed; plan agreed upon as documented in EMR&OBIX.: Yes Diagnosis: FALSE LABOR BEFORE 37 COMPLETED WEEKS OF GEST, THIRD TRI
== END 2022-07-11 23:05 | disposition home or self-care (01) ==
LOC: FBPOP 21:41
PROVIDERS: ATTEND Obstetrics & Gynecology
DX: O47.03 False labor before 37 completed weeks of gestation, third trimester (principal); Z3A.37 37 weeks gestation of pregnancy; Z91.018 Allergy to other foods
CPT/HCPCS: 59025; 84112; G0463; 99213

== ENCOUNTER 2022-07-22 05:30 | Inpatient (IN) | payer OTHER ==
[2022-07-22] MEDS ORDERED: TERBUTALINE 1 MG/ML VIAL SQ PRN (05:46)
[2022-07-22] MEDS ORDERED: METHYLERGONOVINE 0.2 MG/ML 1 ML AMP IM PRN (05:46)
[2022-07-22] MEDS ORDERED: CARBOPROST TROMETHAMINE 250 MCG/ML 1 ML AMP IM PRN (05:46)
[2022-07-22] MEDS ORDERED: LIDOCAINE 0.5% (PF) 5 MG/ML (50 ML SDV) SQ PRN (05:46)
[2022-07-22] MEDS ORDERED: OXYTOCIN 10 UNIT/ML 1 ML VIAL IM PRN (05:46)
[2022-07-22] MEDS ORDERED: OXYTOCIN 30 UNITS/500 ML NS 30 UNIT in SALINE 1 500ML.BAG IV SCH ×2 (06:00→08:15)
[2022-07-22] MEDS ORDERED: LACTATED RINGERS 1,000 ML IV SCH (06:00)
[2022-07-22 06:04] LABS: Basophils # (A) 0.1 k/uL (0-0.2); Basophils % (A) 1 %; Eosinophils # (A) 0.1 k/uL (0-0.7); Eosinophils % (A) 1 %; HCT 38.2 % (34.0-46.0); HGB 12.3 gm/dL (11.4-16.0); Lymphocytes # (A) 2.5 k/uL (1.0-4.8); Lymphocytes % (A) 22 %; MCH 31.6 pg (25.0-35.0); MCHC 32.2 g/dL (31.0-37.0); MCV 98.1 fL (80.0-100.0); Mean Platelet Volume 7.3; Monocytes # (A) 0.6 k/uL (0-1.0); Monocytes % (A) 6 %; Neutrophils # (A) 7.6 k/uL (1.3-7.7); Neutrophils % (A) 69 %; Platelet Count 224 k/uL (150-450); RBC 3.89 m/uL (3.80-5.40); RDW 14.4 % (11.5-15.5); WBC 11.1 k/uL (3.8-10.6)
[2022-07-22] MEDS ORDERED: diphenhydrAMINE 50 MG CAP PO PRN (08:10)
[2022-07-22] MEDS ORDERED: diphenhydrAMINE 25 MG CAP PO PRN (08:10)
[2022-07-22] MEDS ORDERED: SIMETHICONE 80 MG CHEWABLE PO PRN (08:10)
[2022-07-22] MEDS ORDERED: LANOLIN CREAM 5 GM TUBE TOPICAL PRN (08:10)
[2022-07-22] MEDS ORDERED: BENZOCAINE/MENTHOL SPRAY 1 GM/SPRAY AEROSOL TOPICAL PRN (08:10)
[2022-07-22] MEDS ORDERED: ZOLPIDEM 5 MG TAB PO PRN (08:10)
[2022-07-22] MEDS ORDERED: HYDROCORTISONE 2.5% RECTAL CREAM 30 GM TUBE RECTAL PRN (08:10)
--- NOTE | 2022-07-22 08:19 | P.PROBDLV ---
Vaginal Delivery Note - . Vaginal Delivery Note: Findings: Female with Apgars of 9 at 1 minute and 9 at 5 minutes weighing 8 lbs. 6 oz. Delivery summary: This is a term patient is admitted for induction of labor and had undergone artificial rupture of membranes and Pitocin induction of labor approximately 1 hour ago. When I arrived on the unit I was called to the bedside as the patient was precipitously delivering without attending physician present. I introduced myself. The patient was in significant distress with uncontrolled urge to push. She was directed into the modified Wil position in the perineum was prepped. With maternal effort the head delivered from the left occiput anterior position. There was no nuchal cord. The anterior shoulder was delivered with gentle downward traction as well as internal rotation of the anterior shoulder which was the left shoulder. I did my index finger around the left humerus to assist the shoulder under the pubic bone. The rest the infant then delivered onto the field. The nose and mouth were bulb suctioned and there was immediate cry. The was placed on the maternal abdomen and at this time the attending physician arrived. The third stage of labor was turned over to them.
[2022-07-22] MEDS: IBUPROFEN 600 MG TAB PO PRN ×3 (08:20→20:24)
--- NOTE | 2022-07-22 08:26 | P.HPOB ---
History of Present Illness H&P Date: 07/22/22 Chief Complaint: induction of labor 32 year old presents at 39 weeks for induction of labor. Her cervix is 3-4/70/-1. She is bernabe irregularly. heart tones 135 with moderate variability and reactive. Review of Systems All systems: negative Constitutional: Denies chills, Denies fever Eyes: denies blurred vision, denies pain Ears, nose, mouth and throat: Denies headache, Denies sore throat Cardiovascular: Denies chest pain, Denies shortness of breath Respiratory: Denies cough Gastrointestinal: Denies abdominal pain, Denies diarrhea, Denies nausea, Denies vomiting Genitourinary: Denies dysuria, Denies hematuria Musculoskeletal: Denies myalgias Integumentary: Denies pruritus, Denies rash Neurological: Denies numbness, Denies weakness Psychiatric: Denies anxiety, Denies depression Endocrine: Denies fatigue, Denies weight change Past Medical History Past Medical History: No Reported History History of Any Multi-Drug Resistant Organisms: None Reported Past Surgical History: No Surgical Hx Reported Past Anesthesia/Blood Transfusion Reactions: No Reported Reaction Past Psychological History: Anxiety Smoking Status: Never smoker Past Alcohol Use History: None Reported Past Drug Use History: None Reported - Past Family History Mother Family Medical History: Thyroid Disorder Additional Family Medical History / Comment(s): ovarian cancer Medications and Allergies Home Medications Medication Instructions Recorded Confirmed Type Vit No.180/Iron/Folic 1 each PO DAILY 05/09/20 07/22/22 History [ Plus Tablet] Allergies Allergy/AdvReac Type Severity Reaction Status Date / Time chocolate flavor Allergy Intermediate Rash/Hives Verified 07/22/22 05:46 Exam Osteopathic Statement: *. No significant issues noted on an osteopathic structural exam other than those noted in the History and Physical/Consult. Vital Signs Temp Pulse Resp BP Pulse Ox 07/22/22 05:45 97.2 F L 98 17 125/73 96 Intake and Output 07/21/22 07/22/22 07/22/22 22:59 06:59 14:59 Other: # Voids 1 Weight 90.718 kg HEart: RRR Lungs: CTAB Abdomen: soft, nontender Extremeties: neg ayesha's Results Result Diagrams: 07/22/22 05:45 Abnormal Lab Results - Last 24 Hours (Table) 07/22/22 Range/Units 05:45 WBC 11.1 H (3.8-10.6) k/uL Assessment and Plan (1) Elective induction of labor planned Current Visit: Yes Status: Acute Code(s): [id number] - SNOMED Code(s): 388387308 Plan: 1. amniotomy and pitocin for induction of labor 2. anticipate normal vaginal delivery
--- NOTE | 2022-07-22 08:28 | P.PROBDLV ---
Vaginal Delivery Note - . Vaginal Delivery Note: I was called to bedside as patient was delivering. I arrived to find Dr Beatty at bedside. She had just assisted in delivering the . I clamped and cut the cord and handed the baby to nursing staff. Placenta was then delivered spontaneously with 3 vessel cord. Vagina, cervix and perineum inspected. No lacerations noted. EBL 50ml. mother and baby in stable condition.
[2022-07-22] MEDS: ACETAMINOPHEN TAB 325 MG TAB PO PRN ×2 (09:00→15:51)
[2022-07-22 09:19] VITALS: RESP 16
[2022-07-22] MEDS: SENNOSIDES-DOCUSATE SODIUM 1 EACH TAB PO SCH (20:24)
[2022-07-23] MEDS: ACETAMINOPHEN TAB 325 MG TAB PO PRN (00:18)
[2022-07-23 07:44] LABS: Basophils # (A) 0.1 k/uL (0-0.2); Basophils % (A) 0 %; Eosinophils # (A) 0.2 k/uL (0-0.7); Eosinophils % (A) 1 %; HGB 12.3 gm/dL (11.4-16.0); Lymphocytes # (A) 2.7 k/uL (1.0-4.8); Lymphocytes % (A) 23 %; MCH 32.1 pg (25.0-35.0); MCHC 32.5 g/dL (31.0-37.0); MCV 98.9 fL (80.0-100.0); Mean Platelet Volume 7.3; Monocytes # (A) 0.6 k/uL (0-1.0); Monocytes % (A) 5 %; Neutrophils # (A) 8.2 k/uL (1.3-7.7); Neutrophils % (A) 69 %; Platelet Count 198 k/uL (150-450); RBC 3.84 m/uL (3.80-5.40); RDW 14.5 % (11.5-15.5); WBC 11.9 k/uL (3.8-10.6)
[2022-07-23] MEDS: IBUPROFEN 600 MG TAB PO PRN (08:48)
[2022-07-23 08:51] VITALS: BP 118/83; PULSE 115; TEMP 98.1
[2022-07-23] MEDS: SENNOSIDES-DOCUSATE SODIUM 1 EACH TAB PO SCH (08:51)
--- NOTE | 2022-07-23 09:01 | P.DS ---
Providers Date of admission: 07/22/22 05:30 Expected date of discharge: 07/23/22 Attending physician: Delfina Garcia Primary care physician: Stated None - Discharge Diagnosis(es) (1) Elective induction of labor planned Current Visit: Yes Status: Resolved (2) Normal vaginal delivery Current Visit: Yes Status: Acute Hospital Course: Patient presented for induction of labor at term. She underwent a normal vaginal delivery. course was uncomplicated. She denies nausea, vomi ting, chest pain, shortness of breath or any calf pain. She'll be discharged home day #1 in stable condition to follow-up with me in 6 weeks. Plan - Discharge Summary New Discharge Prescriptions: New Ibuprofen [Motrin] 600 mg PO Q6HR PRN #30 tab PRN Reason: Mild Pain (Scale 1 To 3) No Action Vit No.180/Iron/Folic [ Plus Tablet] 1 each PO DAILY Discharge Medication List Vit No.180/Iron/Folic [ Plus Tablet] 1 each PO DAILY 05/09/20 [History] Ibuprofen [Motrin] 600 mg PO Q6HR PRN #30 tab 07/23/22 [Rx] Follow up Appointment(s)/Referral(s): Delfina Garcia DO [Doctor of Osteopathic Medicine] - 09/01/22 3:45 pm Discharge Disposition: HOME SELF-CARE
== END 2022-07-23 09:30 | disposition home or self-care (01) | DRG 807 ==
LOC: 4FBP 05:30
PROVIDERS: ADMIT Obstetrics & Gynecology; ATTEND Obstetrics & Gynecology
PROC: 10D07Z7 Extraction of Products of Conception, Internal Version, Via Natural or Artificial Opening (ICD-10-PCS; principal; 2022-07-22)
PROC: 4A0HXCZ Measurement of Products of Conception, Cardiac Rate, External Approach (ICD-10-PCS; 2022-07-22)
PROC: 10907ZC Drainage of Amniotic Fluid, Therapeutic from Products of Conception, Via Natural or Artificial Opening (ICD-10-PCS; 2022-07-22)
PROC: 3E033VJ Introduction of Other Hormone into Peripheral Vein, Percutaneous Approach (ICD-10-PCS; 2022-07-22)
DX: O62.3 Precipitate labor (principal); Z37.0 Single live birth; F41.9 Anxiety disorder, unspecified; O99.344 Other mental disorders complicating childbirth; Z3A.39 39 weeks gestation of pregnancy; Z91.018 Allergy to other foods
CPT/HCPCS: 85025; 86850; 86900; 86901

== ENCOUNTER → 2022-09-11 | Outpatient (CLI) | payer OTHER | END | disposition home or self-care (01) | LOC: LABWHC1 11:57 | PROVIDERS: ATTEND Obstetrics & Gynecology | DX: N91.2 Amenorrhea, unspecified (principal) | CPT/HCPCS: 36415; 84702 ==

== ENCOUNTER 2024-05-28 12:54 | Emergency (ER) | payer OTHER ==
[2024-05-28 13:02] VITALS: RESP 18
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
[2024-05-28 16:42] VITALS: BP 123/82; PULSE 83; TEMP 98.4
== END 2024-05-28 16:46 | disposition home or self-care (01) ==
LOC: EC 12:54
DX: S63.501A Unspecified sprain of right wrist, initial encounter (principal); X50.0XXA Overexertion from strenuous movement or load, initial encounter
CPT/HCPCS: 99283

== ENCOUNTER 2024-11-01 14:54 | Emergency (ER) | payer OTHER ==
[2024-11-01 15:23] VITALS: RESP 18; TEMP 97.7
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
[2024-11-01 16:42] VITALS: BP 107/72; PULSE 92
== END 2024-11-01 16:43 | disposition home or self-care (01) ==
LOC: EC 14:54
DX: M25.531 Pain in right wrist (principal); S09.90XA Unspecified injury of head, initial encounter; S20.219A Contusion of unspecified front wall of thorax, initial encounter; X58.XXXA Exposure to other specified factors, initial encounter
CPT/HCPCS: 70450; 71046; 99284